=== PATIENT | male | born 2000 ===

== ENCOUNTER 2019-04-04 07:21 | Day surgery (SDC) | payer SELFPAY ==
[2019-04-04] MEDS ORDERED: Sodium Chloride 0.9% 1,000 ML IV ONE (07:28)
[2019-04-04] MEDS ORDERED: Ketorolac 30 MG/ML SDV IVPUSH ONE (07:31)
[2019-04-04] MEDS ORDERED: Ondansetron 4 MG/2 ML SDV IVPUSH ONE (07:31)
[2019-04-04 08:09] LABS: BLOOD UREA NITROGEN,BUN 10 mg/dL (7.0-18.0); CHLORIDE,CL 101 mmol/L (98-107); GLUCOSE RANDOM 122 mg/dL (74-106); POTASSIUM,K 3.6 mmol/L (3.5-5.1); SODIUM,NA 137 mmol/L (136-148)
--- NOTE | 2019-04-04 08:12 | EDM.PDOC ---
ED HPI GENERAL MEDICAL PROBLEM - General Chief Complaint: Abdominal Pain Stated Complaint: ABD PAIN Time Seen by Provider: 04/04/19 08:03 - History of Present Illness INITIAL COMMENTS - FREE TEXT/NARRATIVE: HISTORY AND PHYSICAL: History of present illness: Patient is a 18-year-old male with no significant past medical history who presents with history of right lower quadrant abdominal pain 3 he denies diarrhea denies vomiting although has had some mild nausea denies fever chills trauma urinary symptoms or other complaints. Review of systems: As per history of present illness and below otherwise all systems reviewed and negative. Past medical history: As per history of present illness and as reviewed below otherwise noncontributory. Surgical history: As per history of present illness and as reviewed below otherwise noncontributory. Social history: No reported history of drug or alcohol abuse. Family history: As per history of present illness and as reviewed below otherwise noncontributory. Physical exam: HEENT: Atraumatic, normocephalic, pupils reactive, negative for conjunctival pallor or scleral icterus, mucous membranes moist, throat clear, neck supple, nontender, trachea midline. Lungs: Clear to auscultation, breath sounds equal bilaterally, chest nontender. Heart: S1S2, regular, negative for clicks, rubs, or JVD. Abdomen: Soft, tenderness in the right lower quadrant with mild guarding. Negative for masses or hepatosplenomegaly. Negative for costovertebral tenderness. Pelvis: Stable nontender. Genitourinary: Deferred. Rectal: Deferred. Extremities: Atraumatic, negative for cords or calf pain. Neurovascular unremarkable. Neuro: Awake, alert, oriented. Cranial nerves II through XII unremarkable. Cerebellum unremarkable. Motor and sensory unremarkable throughout. Exam nonfocal. Diagnostics: CBC CMP UA CT abdomen and pelvis with IV contrast Therapeutics: Saline 1 L bolus Impression: #1 acute right lower quadrant abdominal pain Definitive disposition and diagnosis as appropriate pending reevaluation and review of above. Lower Abdominal Pain Score (Numeric/FACES): 9 - Related Data Allergies Allergy/AdvReac Type Severity Reaction Status Date / Time No Known Allergies Allergy Verified 04/04/19 07:26 Home Meds: Home Meds . [No Known Home Meds] 04/04/19 [History] Past Medical History - Past Surgical History HEENT Surgical History: Reports: Tonsillectomy GI Surgical History: Reports: Hernia, Inguinal Social & Family History - Family History Family Medical History: Noncontributory - Tobacco Use Smoking Status *Q: Light Tobacco Smoker Years of Tobacco use: 1 Packs/Tins Daily: 0.1 - Recreational Drug Use Recreational Drug Use: No ED ROS GENERAL - Review of Systems Review Of Systems: ROS reveals no pertinent complaints other than HPI. ED EXAM, GENERAL - Physical Exam Exam: See Below (See dictation) Course - Vital Signs Last Recorded V/S: Last Vital Signs Temp 36.6 C 04/04/19 09:22 Pulse 78 04/04/19 09:22 Resp 18 04/04/19 09:22 BP 120/65 04/04/19 09:22 Pulse Ox 98 04/04/19 09:22 - Orders/Labs/Meds Orders: Active Orders 24 hr Category Date Time Status UA RFX SERGIO AND CULT IF INDIC [URIN] Stat Lab 04/04/19 07:32 Ordered Labs: Laboratory Tests 04/04/19 04/04/19 Range/Units 07:33 07:33 WBC 14.38 H (4.0-11.0) K/uL RBC 4.89 (4.50-5.90) M/uL Hgb 15.5 (13.0-17.0) g/dL Hct 44.2 (38.0-50.0) % MCV 90.4 (80.0-98.0) fL MCH 31.7 (27.0-32.0) pg MCHC 35.1 (31.0-37.0) g/dL RDW Std Deviation 40.0 (28.0-62.0) fl RDW Coeff of David 12 (11.0-15.0) % Plt Count 266 (150-400) K/uL MPV 9.70 (7.40-12.00) fL Neut % (Auto) 89.4 H (48.0-80.0) % Lymph % (Auto) 4.0 L (16.0-40.0) % [place] % (Auto) 6.5 (0.0-15.0) % Eos % (Auto) 0.0 (0.0-7.0) % Baso % (Auto) 0.1 (0.0-1.5) % Neut # (Auto) 12.9 H (1.4-5.7) K/uL Lymph # (Auto) 0.6 (0.6-2.4) K/uL [place] # (Auto) 0.9 H (0.0-0.8) K/uL Eos # (Auto) 0.0 (0.0-0.7) K/uL Baso # (Auto) 0.0 (0.0-0.1) K/uL Nucleated RBC % 0.0 /100WBC Nucleated RBCs # 0 K/uL Sodium 137 (136-148) mmol/L Potassium 3.6 (3.5-5.1) mmol/L Chloride 101 (98-107) mmol/L Carbon Dioxide 25.0 (21.0-32.0) mmol/L BUN 10 (7.0-18.0) mg/dL Creatinine 1.2 (0.8-1.3) mg/dL Est Cr Clr Drug Dosing 91.35 mL/min Estimated GFR (MDRD) > 60.0 ml/min Glucose 122 H (74-106) mg/dL Calcium 8.9 (8.5-10.1) mg/dL Total Bilirubin 1.5 H (0.2-1.0) mg/dL AST 14 L (15-37) IU/L ALT 18 (14-63) IU/L Alkaline Phosphatase 75 (46-116) U/L Total Protein 7.7 (6.4-8.2) g/dL Albumin 4.2 (3.4-5.0) g/dL Globulin 3.5 (2.6-4.0) g/dL Albumin/Globulin Ratio 1.2 (0.9-1.6) Meds: Medications Discontinued Medications Generic Name Dose Route Start Last Admin Trade Name Freq PRN Reason Stop Dose Admin Sodium Chloride 1,000 mls @ 999 mls/hr 04/04/19 07:28 04/04/19 07:39 Normal Saline IV 04/04/19 08:28 999 mls/hr .Bolus ONE Administration Iopamidol 80 ml 04/04/19 08:54 04/04/19 08:54 Isovue Multipack-370 (76%) IVPUSH 04/04/19 08:55 80 ml ONETIME STA Administration Ketorolac Tromethamine 30 mg 04/04/19 07:31 04/04/19 07:38 Toradol IVPUSH 04/04/19 07:32 30 mg ONETIME ONE Administration Ondansetron HCl 4 mg 04/04/19 07:31 04/04/19 07:38 Zofran IVPUSH 04/04/19 07:32 4 mg ONETIME ONE Administration Departure - Departure Time of Disposition: 09:35 Disposition: Still A Patient 30 Condition: Good Clinical Impression: Abdominal pain, Appendicitis - Discharge Information Forms: ED Department Discharge - My Orders Last 24 Hours: My Active Orders 04/04/19 07:32 UA RFX SERGIO AND CULT IF INDIC [URIN] Stat - Assessment/Plan Last 24 Hours: My Active Orders 04/04/19 07:32 UA RFX SERGIO AND CULT IF INDIC [URIN] Stat
[2019-04-04] MEDS ORDERED: Iopamidol 755 MG/ML 500 ML Multipack Bottle IVPUSH STA (08:54)
--- NOTE | 2019-04-04 09:14 | CT ---
INDICATION: Lower abdominal pain with nausea TECHNIQUE: CT abdomen and pelvis acquired with 100 cc Omnipaque IV contrast. COMPARISON: None. FINDINGS: Lower chest: Unremarkable. Liver: Unremarkable. Normal in size and attenuation. No masses. Gallbladder and bile ducts: Unremarkable. No stones or inflammation. No biliary dilatation. Pancreas: Unremarkable. No mass or inflammation. Spleen: Unremarkable. Normal in size. No masses. Adrenal glands: Unremarkable. No nodules. Kidneys: Unremarkable. No masses, stones, or hydronephrosis. GI tract: Unremarkable. Normal in caliber. No sign of mass or inflammation. Appendix is inflamed and dilated measuring up to 9 mm. No sign of angelia perforation or abscess. Vasculature: Unremarkable. Mesenteric arteries are patent. Lymph nodes: No lymphadenopathy. Omentum/Peritoneum/Abdominal Wall: Unremarkable. No sign of mass or infiltration. No free air or significant free fluid. Pelvis: Unremarkable. Bones: Unremarkable for age. IMPRESSION: Acute appendicitis without complication. Please note that all CT scans at this facility use dose modulation, iterative reconstruction, and/or weight-based dosing when appropriate to reduce radiation dose to as low as reasonably achievable. Dictated by Willian Cavanaugh MD @ Apr 04 2019 9:09AM Signed by Dr. Willian Cavanaugh @ Apr 04 2019 9:12AM
[2019-04-04] MEDS ORDERED: cefOXitin 2 GM in Premix Bag 1 BAG IV ONE (10:03)
--- NOTE | 2019-04-04 10:39 | PCM.PREANE ---
Preanesthetic Assessment - Anesthesia/Transfusion/Family Hx Anesthesia History: Prior Anesthesia Without Reaction Family History of Anesthesia Reaction: No Transfusion History: Unknown Intubation History: Unknown - Review of Systems General: No Symptoms Pulmonary: No Symptoms Cardiovascular: No Symptoms Gastrointestinal: Abdominal Pain Neurological: No Symptoms Other: Reports: None - Physical Assessment Vital Signs: Last Vital Signs Temp 36.6 C 04/04/19 10:22 Pulse 72 04/04/19 10:22 Resp 18 04/04/19 10:22 BP 121/52 L 04/04/19 10:22 Pulse Ox 99 04/04/19 10:22 Height: 5 ft 9 in Weight: 65.771 kg ASA Class: 2E Mental Status: Alert & Oriented x3 Airway Class: Mallampati = 1 Dentition: Reports: Normal Dentition Thyro-Mental Finger Breadths: 3 Mouth Opening Finger Breadths: 3 ROM/Head Extension: Full Lungs: Clear to Auscultation, Normal Respiratory Effort Cardiovascular: Regular Rate, Regular Rhythm - Lab Values: Laboratory Last Values WBC 14.38 K/uL (4.0-11.0) H 04/04/19 07:33 RBC 4.89 M/uL (4.50-5.90) 04/04/19 07:33 Hgb 15.5 g/dL (13.0-17.0) 04/04/19 07:33 Hct 44.2 % (38.0-50.0) 04/04/19 07:33 MCV 90.4 fL (80.0-98.0) 04/04/19 07:33 MCH 31.7 pg (27.0-32.0) 04/04/19 07:33 MCHC 35.1 g/dL (31.0-37.0) 04/04/19 07:33 RDW Std Deviation 40.0 fl (28.0-62.0) 04/04/19 07:33 RDW Coeff of David 12 % (11.0-15.0) 04/04/19 07:33 Plt Count 266 K/uL (150-400) 04/04/19 07:33 MPV 9.70 fL (7.40-12.00) 04/04/19 07:33 Neut % (Auto) 89.4 % (48.0-80.0) H 04/04/19 07:33 Lymph % (Auto) 4.0 % (16.0-40.0) L 04/04/19 07:33 [place] % (Auto) 6.5 % (0.0-15.0) 04/04/19 07:33 Eos % (Auto) 0.0 % (0.0-7.0) 04/04/19 07:33 Baso % (Auto) 0.1 % (0.0-1.5) 04/04/19 07:33 Neut # (Auto) 12.9 K/uL (1.4-5.7) H 04/04/19 07:33 Lymph # (Auto) 0.6 K/uL (0.6-2.4) 04/04/19 07:33 [place] # (Auto) 0.9 K/uL (0.0-0.8) H 04/04/19 07:33 Eos # (Auto) 0.0 K/uL (0.0-0.7) 04/04/19 07:33 Baso # (Auto) 0.0 K/uL (0.0-0.1) 04/04/19 07:33 Nucleated RBC % 0.0 /100WBC 04/04/19 07:33 Nucleated RBCs # 0 K/uL 04/04/19 07:33 Sodium 137 mmol/L (136-148) 04/04/19 07:33 Potassium 3.6 mmol/L (3.5-5.1) 04/04/19 07:33 Chloride 101 mmol/L (98-107) 04/04/19 07:33 Carbon Dioxide 25.0 mmol/L (21.0-32.0) 04/04/19 07:33 BUN 10 mg/dL (7.0-18.0) 04/04/19 07:33 Creatinine 1.2 mg/dL (0.8-1.3) 04/04/19 07:33 Est Cr Clr Drug Dosing 91.35 mL/min 04/04/19 07:33 Estimated GFR (MDRD) > 60.0 ml/min 04/04/19 07:33 Glucose 122 mg/dL (74-106) H 04/04/19 07:33 Calcium 8.9 mg/dL (8.5-10.1) 04/04/19 07:33 Total Bilirubin 1.5 mg/dL (0.2-1.0) H 04/04/19 07:33 AST 14 IU/L (15-37) L 04/04/19 07:33 ALT 18 IU/L (14-63) 04/04/19 07:33 Alkaline Phosphatase 75 U/L (46-116) 04/04/19 07:33 Total Protein 7.7 g/dL (6.4-8.2) 04/04/19 07:33 Albumin 4.2 g/dL (3.4-5.0) 04/04/19 07:33 Globulin 3.5 g/dL (2.6-4.0) 04/04/19 07:33 Albumin/Globulin Ratio 1.2 (0.9-1.6) 04/04/19 07:33 - Allergies Allergies/Adverse Reactions: Allergies Allergy/AdvReac Type Severity Reaction Status Date / Time No Known Allergies Allergy Verified 04/04/19 07:26 - Blood Blood Available: No - Anesthesia Plan Pre-Op Medication Ordered: None - Acknowledgements Anesthesia Type Planned: General Anesthesia Pt an Appropriate Candidate for the Planned Anesthesia: Yes Alternatives and Risks of Anesthesia Discussed w Pt/Guardian: Yes Pt/Guardian Understands and Agrees with Anesthesia Plan: Yes PreAnesthesia Questionnaire Gastrointestinal History: Reports: Other (See Below) (acute appendicitis) - Past Surgical History HEENT Surgical History: Reports: Tonsillectomy GI Surgical History: Reports: Hernia, Inguinal (left) Male Surgical History: Reports: Circumcision Dermatological Surgical History: Reports: Other (See Below) (exc. of left face lesion) - SUBSTANCE USE Smoking Status *Q: Light Tobacco Smoker Recreational Drug Use History: No - HOME MEDS Home Medications: Home Meds . [No Known Home Meds] 04/04/19 [History] - CURRENT (IN HOUSE) MEDS Current Meds: Current Medications Discontinued Medications Sodium Chloride (Normal Saline) 1,000 mls @ 999 mls/hr IV .Bolus ONE Stop: 04/04/19 08:28 Last Admin: 04/04/19 07:39 Dose: 999 mls/hr Cefoxitin Sodium 2 gm/ Premix 50 mls @ 100 mls/hr IV ONETIME ONE Stop: 04/04/19 10:32 Last Admin: 04/04/19 10:19 Dose: 100 mls/hr Iopamidol (Isovue Multipack-370 (76%)) 80 ml IVPUSH ONETIME STA Stop: 04/04/19 08:55 Last Admin: 04/04/19 08:54 Dose: 80 ml Ketorolac Tromethamine (Toradol) 30 mg IVPUSH ONETIME ONE Stop: 04/04/19 07:32 Last Admin: 04/04/19 07:38 Dose: 30 mg Ondansetron HCl (Zofran) 4 mg IVPUSH ONETIME ONE Stop: 04/04/19 07:32 Last Admin: 04/04/19 07:38 Dose: 4 mg
[2019-04-04] MEDS ORDERED: Bupivacaine 0.5% 10 ML SDV ONE (10:52)
[2019-04-04] MEDS ORDERED: ceFAZolin 1 GM Vial ONE (10:53)
[2019-04-04] MEDS ORDERED: Lactated Ringers 1,000 ML IV SCH (11:00)
--- NOTE | 2019-04-04 12:05 | PCM.CONS ---
H&P History of Present Illness - General Date of Service: 04/04/19 Admit Problem/Dx: Acute abdomen Source of Information: Patient History Limitations: Reports: No Limitations - History of Present Illness Initial Comments - Free Text/Narative: Patient is a 18-year-old gentleman who presented the emergency room with a three -day history of abdominal pain. He did have some fever and chills last night. He said he has had some nausea but no vomiting. He has also lost his appetite. He notes pain on ambulation and states he can't stand up straight when he walks. Symptom Onset Date: 04/01/19 Duration of Symptoms: Reports: Getting Worse Location: Reports: Abdomen Quality: Reports: Ache, Pressure, Throbbing Severity: Moderate Improves with: Reports: Rest Worsens with: Reports: Movement Context: Reports: Sick Contact Associated Symptoms: Reports: Loss of Appetite Lower Abdominal Pain Score (Numeric/FACES): 9 - Related Data Allergies/Adverse Reactions: Allergies Allergy/AdvReac Type Severity Reaction Status Date / Time No Known Allergies Allergy Verified 04/04/19 07:26 Home Medications: Home Meds . [No Known Home Meds] 04/04/19 [History] Past Medical History Gastrointestinal History: Reports: Other (See Below) (acute appendicitis) - Past Surgical History HEENT Surgical History: Reports: Tonsillectomy GI Surgical History: Reports: Hernia, Inguinal (left) Male Surgical History: Reports: Circumcision Dermatological Surgical History: Reports: Other (See Below) (exc. of left face lesion) Social & Family History - Family History Family Medical History: Noncontributory - Tobacco Use Smoking Status *Q: Never Smoker Years of Tobacco use: 1 Packs/Tins Daily: 0.1 - Recreational Drug Use Recreational Drug Use: No Drug Use in Last 12 Months: No H&P Review of Systems - Review of Systems: Review Of Systems: See Below General: Reports: Fever, Chills, Decreased Appetite HEENT: Reports: No Symptoms Pulmonary: Denies: Wheezing, Pleuritic Chest Pain Cardiovascular: Denies: Chest Pain Gastrointestinal: Reports: Abdominal Pain, Anorexia, Decreased Appetite, Nausea. Denies: Vomiting Genitourinary: Denies: Dysuria, Frequency, Burning, Pain, Urgency Musculoskeletal: Reports: No Symptoms Skin: Reports: No Symptoms Psychiatric: Reports: No Symptoms Neurological: Reports: No Symptoms Hematologic/Lymphatic: Reports: No Symptoms Immunologic: Reports: No Symptoms Exam - Exam Exam: See Below - Vital Signs Vital Signs: Last Vital Signs Temp 97.5 F 04/04/19 10:45 Pulse 71 04/04/19 10:45 Resp 16 04/04/19 10:45 BP 127/70 04/04/19 10:45 Pulse Ox 98 04/04/19 10:45 Weight: 145 lb - Exam Quality Assessment: No: Supplemental Oxygen General: Alert, Oriented, Cooperative, Mild Distress HEENT: Conjunctiva Clear, EACs Clear, Pupils Equal, Pupils Reactive. No: Scleral Icterus Neck: Supple, Trachea Midline Lungs: Clear to Auscultation, Normal Respiratory Effort Cardiovascular: Regular Rate, Regular Rhythm, Normal S1, Normal S2. No: Tachycardia GI/Abdominal Exam: Normal Bowel Sounds, Soft, No Distention, Rebound, Tender. No: Guarding, Rigid (Male) Exam: No Hernia Rectal (Males) Exam: Deferred Back Exam: Normal Inspection Extremities: Normal Inspection, Normal Range of Motion Peripheral Pulses: 4+: Posterior Tibial (L), Posterior Tibial (R), Dorsalis Pedis (L), Dorsalis Pedis (R) Skin: Warm, Dry, Intact Neurological: Cranial Nerves Intact Neuro Extensive - Mental Status: Alert, Oriented x3, Normal Mood/Affect Psychiatric: Alert, Normal Affect, Normal Mood - Patient Data Lab Results Last 24 hrs: Laboratory Results - last 24 hr 04/04/19 04/04/19 Range/Units 07:33 07:33 WBC 14.38 H (4.0-11.0) K/uL RBC 4.89 (4.50-5.90) M/uL Hgb 15.5 (13.0-17.0) g/dL Hct 44.2 (38.0-50.0) % MCV 90.4 (80.0-98.0) fL MCH 31.7 (27.0-32.0) pg MCHC 35.1 (31.0-37.0) g/dL RDW Std Deviation 40.0 (28.0-62.0) fl RDW Coeff of David 12 (11.0-15.0) % Plt Count 266 (150-400) K/uL MPV 9.70 (7.40-12.00) fL Neut % (Auto) 89.4 H (48.0-80.0) % Lymph % (Auto) 4.0 L (16.0-40.0) % [place] % (Auto) 6.5 (0.0-15.0) % Eos % (Auto) 0.0 (0.0-7.0) % Baso % (Auto) 0.1 (0.0-1.5) % Neut # (Auto) 12.9 H (1.4-5.7) K/uL Lymph # (Auto) 0.6 (0.6-2.4) K/uL [place] # (Auto) 0.9 H (0.0-0.8) K/uL Eos # (Auto) 0.0 (0.0-0.7) K/uL Baso # (Auto) 0.0 (0.0-0.1) K/uL Nucleated RBC % 0.0 /100WBC Nucleated RBCs # 0 K/uL Sodium 137 (136-148) mmol/L Potassium 3.6 (3.5-5.1) mmol/L Chloride 101 (98-107) mmol/L Carbon Dioxide 25.0 (21.0-32.0) mmol/L BUN 10 (7.0-18.0) mg/dL Creatinine 1.2 (0.8-1.3) mg/dL Est Cr Clr Drug Dosing 91.35 mL/min Estimated GFR (MDRD) > 60.0 ml/min Glucose 122 H (74-106) mg/dL Calcium 8.9 (8.5-10.1) mg/dL Total Bilirubin 1.5 H (0.2-1.0) mg/dL AST 14 L (15-37) IU/L ALT 18 (14-63) IU/L Alkaline Phosphatase 75 (46-116) U/L Total Protein 7.7 (6.4-8.2) g/dL Albumin 4.2 (3.4-5.0) g/dL Globulin 3.5 (2.6-4.0) g/dL Albumin/Globulin Ratio 1.2 (0.9-1.6) Result Diagrams: 04/04/19 07:33 04/04/19 07:33 Consult PN Assessment/Plan (1) Abdominal pain SNOMED Code(s): 59966106 Code(s): R10.9 - UNSPECIFIED ABDOMINAL PAIN Current Visit: Yes Qualifiers: Abdominal location: right lower quadrant Qualified Code(s): R10.31 - Right lower quadrant pain (2) Appendicitis SNOMED Code(s): 15237606 Code(s): K37 - UNSPECIFIED APPENDICITIS Current Visit: Yes Qualifiers: Appendicitis type: acute appendicitis Problem List Initiated/Reviewed/Updated: Yes My Orders Last 24 Hours: My Active Orders 04/04/19 10:53 Antiembolic Devices [RC] PER UNIT ROUTINE Insert Urinary Catheter [OM.PC] Timed Oxygen Therapy [RC] ASDIRECTED RT Incentive Spirometry [RC] Q1HWA Skin Preparation [RC] .PREOP Urinary Catheter Assessment [RC] ASDIRECTED Urinary Catheter Assessment [RC] ASDIRECTED Urinary Catheter Assessment [RC] ASDIRECTED Vital Signs [RC] PER UNIT ROUTINE Antiembolic Hose [OM.PC] Routine Resuscitation Status Routine 04/04/19 11:00 Lactated Ringers [Ringers, Lactated] 1,000 ml IV ASDIRECTED 04/04/19 Dinner Nothing Per Oral Diet [DIET] Plan: Laparoscopic appendectomy, possible open appendectomy. Both operative procedures, along with the risks, including, but not limited to, bleeding, infection, pneumonia, deep venous thrombosis, pulmonary emboli, myocardial infarction, and adjacent organ injury have been reviewed with the patient who voices understanding, offers no questions and agrees to proceed.
[2019-04-04] MEDS ORDERED: Propofol 200 MG/20 ML SDV ONE (12:14)
[2019-04-04] MEDS ORDERED: Midazolam 1 MG/ML 2 ML SDV ONE (12:14)
[2019-04-04] MEDS ORDERED: Dexamethasone 4 MG/ML 5 ML MDV ONE (12:15)
[2019-04-04] MEDS ORDERED: Rocuronium 100 MG/10 ML Syringe ONE (12:15)
[2019-04-04] MEDS ORDERED: fentaNYL 250 MCG/5 ML SDV ONE ×2 (12:15→13:27)
[2019-04-04] MEDS ORDERED: Lidocaine 2% 5 ML SDV ONE (12:15)
[2019-04-04] MEDS ORDERED: Ondansetron 4 MG/2 ML SDV ONE ×2 (12:19→13:51)
[2019-04-04] MEDS ORDERED: Glycopyrrolate 0.2 MG/ML SDV ONE (13:47)
[2019-04-04] MEDS ORDERED: Neostigmine Methylsulfate 1 MG/ML 5 ML Syringe ONE (13:47)
[2019-04-04] MEDS ORDERED: Ketorolac 30 MG/ML SDV ONE (14:02)
[2019-04-04] MEDS ORDERED: fentaNYL 100 MCG/2 ML SDV IVPUSH PRN (14:36)
--- NOTE | 2019-04-04 14:36 | PCM.OPNOTE ---
- General Post-Op/Procedure Note Date of Surgery/Procedure: 04/04/19 Operative Procedure(s): Laparoscopic appendectomy Pre Op Diagnosis: Acute abdomen Post-Op Diagnosis: Acute appendicitis with localized peritonitis Anesthesia Technique: General ET Tube (ASA IIE) Primary Surgeon: Trino Garcia Fluid Replacement, Intraop: 850 Output, Urine Amount: 350 EBL in mLs: 10 Condition: Stable Free Text/Narrative:: DICTATION [id number] CPT CODE 29626
[2019-04-04] MEDS ORDERED: HYDROmorphone 2 MG/ML Syringe IVPUSH ONE (14:37)
[2019-04-04] MEDS ORDERED: cefOXitin 1 GM in Premix Bag 1 BAG IV SCH (14:45)
[2019-04-04] MEDS ORDERED: Morphine 10 MG/ML Syringe IVPUSH PRN (15:03)
--- NOTE | 2019-04-04 15:17 | OR ---
SURGEON: Trino Garcia M.D. DATE OF PROCEDURE: 04/04/2019 OPERATION PERFORMED: Laparoscopic appendectomy. PRIMARY SURGEON: Trino Garcia MD. ANESTHESIA: General endotracheal. ASA CLASSIFICATION: IIE. PREOPERATIVE DIAGNOSIS: Acute abdomen. POSTOPERATIVE DIAGNOSIS: Acute appendicitis with localized peritonitis. ESTIMATED BLOOD LOSS: 10 mL. INTRAOPERATIVE FLUID REPLACEMENT: 850 mL of crystalloid. INTRAOPERATIVE URINE OUTPUT: 350 mL. DESCRIPTION OF PROCEDURE: The patient was taken to the operating room, placed on the operating table in the supine position. Time-out was called for appropriate identification of the patient and procedure. Thigh-high TEDs and sequential compression boots were placed. Following satisfactory attainment of general endotracheal anesthesia, a Shi catheter was placed in the patient's urinary bladder. Time-out had been called to verify the patient and procedure. The abdomen was prepped with DuraPrep solution. Sterile drapes were applied. The skin just above the umbilicus was infiltrated with 0.5% Marcaine solution. The skin incision was made and deepened through the subcutaneous tissue obtaining hemostasis with the use of electrocautery. The Veress needle was introduced into the peritoneal cavity. Saline drop test was positive. Carbon dioxide pneumoperitoneum was established with the release set at 13 cm of water. Once a satisfactory pneumoperitoneum was established, 5 mm camera and port were placed through the supraumbilical incision. The patient was now positioned with his feet down and rolled to the left. Under camera vision, 12 mm suprapubic and 5 mm left lower quadrant ports were placed. Each incision had preemptively been infiltrated with 0.5% Marcaine solution. The appendix was stuck to the surrounding tissues and with gentle dissection, I was able to mobilize the appendix. The mesoappendix was then taken down with a Harmonic scalpel. Once the mesoappendix had been completely mobilized, the appendix was ligated and transected using the Endo-CECE with a blue load. The staple line was examined and appeared intact. The appendix had properly been placed in an Endo Catch bag and maintained in situ. The right lower quadrant was then inspected and there was no significant bleeding. The right side of the abdomen was irrigated with 1 L of saline containing 1 g of Ancef. All fluid was aspirated. With that accomplished, the 12 mm suprapubic port and Endo Catch containing appendix were removed. Under camera vision, the 5 mm left lower quadrant port was removed and finally the supraumbilical camera and port were removed. Wounds were inspected for hemostasis and small bleeding sites were electrocoagulated. The midline fascia in both the supraumbilical and suprapubic incisions was closed with a single interrupted 0 Vicryl suture. The supraumbilical and suprapubic incisions were closed in 2 layers approximating the subcutaneous tissue with 3-0 Vicryl and the skin with subcuticular 4-0 Monocryl. The left lower quadrant incision was closed with subcuticular 4-0 Monocryl. All incisions were Steri-Stripped and dressed with sterile Tegaderm pads. Sponge, needle, and instrument counts were all correct. Shi catheter was removed prior to emergence from anesthesia. Following emergence from anesthesia and extubation, the patient was taken to recovery room in stable condition. GUERRERO KEANE /[id number]
--- NOTE | 2019-04-04 15:24 | PCM.POSTAN ---
POST ANESTHESIA ASSESSMENT - MENTAL STATUS Mental Status: Alert, Oriented - VITAL SIGNS Vital Signs: Last Vital Signs Temp 36.4 C 04/04/19 14:28 Pulse 55 L 04/04/19 15:18 Resp 11 L 04/04/19 15:18 BP 102/49 L 04/04/19 15:18 Pulse Ox 97 04/04/19 15:18 - RESPIRATORY Respiratory Status: Respiratory Rate WNL, Airway Patent, O2 Saturation Stable - CARDIOVASCULAR CV Status: Pulse Rate WNL, Blood Pressure Stable - GASTROINTESTINAL GI Status: No Symptoms - PAIN Pain Score: 0 - POST OP HYDRATION Hydration Status: Adequate & Stable - OBSERVATIONS Free Text/Narrative:: no anesthesia problems
[2019-04-04] MEDS: Acetaminophen/HYDROcodone 325-5 MG Tab PO PRN (19:27)
[2019-04-04] MEDS: cefOXitin 1 GM in Premix Bag 1 BAG IV SCH (20:05)
[2019-04-04] MEDS: Lactated Ringers 1,000 ML IV SCH (21:30)
[2019-04-05] MEDS: cefOXitin 1 GM in Premix Bag 1 BAG IV SCH ×2 (02:51→10:36)
[2019-04-05] MEDS: Lactated Ringers 1,000 ML IV SCH (06:00)
[2019-04-05] MEDS: Acetaminophen/HYDROcodone 325-5 MG Tab PO PRN (06:40)
--- NOTE | 2019-04-05 07:53 | PCM48HPAN ---
Post Anesthesia Note - EVALUATION WITHIN 48HRS OF ANESTHETIC Vital Signs in Normal Range: Yes Patient Participated in Evaluation: Yes Respiratory Function Stable: Yes Airway Patent: Yes Cardiovascular Function Stable: Yes Hydration Status Stable: Yes Pain Control Satisfactory: Yes Nausea and Vomiting Control Satisfactory: Yes Mental Status Recovered: Yes Vital Signs: Last Vital Signs Temp 36.2 C 04/05/19 07:11 Pulse 63 04/05/19 07:11 Resp 18 04/05/19 07:11 BP 123/66 04/05/19 07:11 Pulse Ox 99 04/05/19 07:11 - COMMENTS/OBSERVATIONS Free Text/Narrative:: no anesthesia problems
--- NOTE | 2019-04-05 09:03 | PCM.DCSUM1 ---
Discharge Summary - Hospital Course Free Text/Narrative:: 18 y/o male who presented yesterday with a 3 day history of abdominal pain. Found to have acute appendicitis. Taken to OR for laparoscopic appendectomy. Appendix was very inflamed but not ruptured. Elected to keep him overnight for 24 hours of antibiotics. Has done very well. Afebrile. VSS. Dressings dry and intact. Feels ready to go home. - Discharge Data Discharge Date: 04/05/19 Discharge Disposition: Home, Self-Care 01 Condition: Stable - Referral to Home Health Primary Care Physician: PCP None - Discharge Diagnosis/Problem(s) (1) Abdominal pain SNOMED Code(s): 51928401 ICD Code: R10.9 - UNSPECIFIED ABDOMINAL PAIN Status: Acute Current Visit : Yes Qualifiers: Abdominal location: right lower quadrant Qualified Code(s): R10.31 - Right lower quadrant pain (2) Appendicitis SNOMED Code(s): 37171744 ICD Code: K37 - UNSPECIFIED APPENDICITIS Status: Acute Current Visit: Yes Qualifiers: Appendicitis type: acute appendicitis Acute appendicitis type: with localized peritonitis Appendicitis perforation presence: without perforation Appendicitis abscess presence: without abscess - Patient Summary/Data Operative Procedure(s) Performed: Laparoscopic appendectomy - Patient Instructions Diet: Usual Diet as Tolerated Activity: No Lifting Over 25 Pounds (for 6 weeks) Driving: May Drive Today Showering/Bathing: May Shower Wound/Incision Care: Keep Operative Site/Wound Site Clean and Dry Wound/Incision, Other: May shower over dressings and remove on post-operative day 2. Notify Provider of: Fever, Increased Pain Other/Special Instructions: See Dr. Garcia in 7-10 days as scheduled. - Discharge Plan Home Medications: Home Meds . [No Known Home Meds] 04/04/19 [History] Referrals: Trino Garcia MD [Physician] - 04/14/19 9:00 am - Discharge Summary/Plan Comment DC Time >30 min.: No - General Info Date of Service: 04/05/19 Admission Dx/Problem (Free Text: Acute appendicitis Subjective Update: Patient has had a good night. He denies any abdominal pain and states he is feeling much better after surgery. He has been up ambulating. He is tolerating an oral diet without difficulty. Functional Status: Reports: Pain Controlled, Tolerating Diet, Ambulating, Urinating, Incentive Spirometry - Review of Systems General: Reports: Appetite. Denies: Fever, Weakness, Fatigue, Malaise, Chills HEENT: Reports: No Symptoms Pulmonary: Denies: Shortness of Breath Cardiovascular: Denies: Chest Pain Gastrointestinal: Denies: Abdominal Pain, Decreased Appetite, Diarrhea, Nausea, Vomiting Genitourinary: Denies: Dysuria, Frequency, Burning, Pain, Urgency Musculoskeletal: Reports: No Symptoms Skin: Denies: Cyanosis, Jaundice Neurological: Denies: Confusion, Dizziness Psychiatric: Reports: No Symptoms - Patient Data Vitals - Most Recent: Last Vital Signs Temp 97.2 F 04/05/19 07:11 Pulse 63 04/05/19 07:11 Resp 18 04/05/19 07:11 BP 123/66 04/05/19 07:11 Pulse Ox 99 04/05/19 07:11 Weight - Most Recent: 145 lb 0.004 oz I&O - Last 24 hours: Intake & Output 04/04/19 04/05/19 04/05/19 19:59 03:59 11:59 Intake Total 2020 50 1478 Output Total 700 525 Balance 1320 50 953 Lab Results - Last 24 hrs: Laboratory Results - last 24 hr 04/05/19 Range/Units 06:40 Urine Color YELLOW Urine Appearance CLEAR Urine pH 6.0 (5.0-8.0) Ur Specific Story 1.015 (1.001-1.035) Urine Protein NEGATIVE (NEGATIVE) mg/dL Urine Glucose (UA) NEGATIVE (NEGATIVE) mg/dL Urine Ketones TRACE H (NEGATIVE) mg/dL Urine Occult Blood NEGATIVE (NEGATIVE) Urine Nitrite NEGATIVE (NEGATIVE) Urine Bilirubin NEGATIVE (NEGATIVE) Urine Urobilinogen 0.2 (<2.0) EU/dL Ur Leukocyte Esterase NEGATIVE (NEGATIVE) Med Orders - Current: Current Medications Hydrocodone Bitart/Acetaminophen ([place] 325-5 Mg) 1 tab PO Q6H PRN PRN Reason: Pain (moderate 4-6) Last Admin: 04/05/19 06:40 Dose: 1 tab Fentanyl (Sublimaze) 50 - 100 mcg IVPUSH Q5M PRN PRN Reason: Pain (severe 7-10) Lactated Ringer's (Ringers, Lactated) 1,000 mls @ 125 mls/hr IV ASDIRECTED [facility] Last Admin: 04/05/19 06:00 Dose: 125 mls/hr Cefoxitin Sodium 1 gm/ Premix 50 mls @ 100 mls/hr IV Q8H [facility] Stop: 04/05/19 11:29 Last Admin: 04/05/19 02:51 Dose: 100 mls/hr Morphine Sulfate (Morphine) 0 mg IVPUSH Q1H PRN PRN Reason: Pain (severe 7-10) Discontinued Medications Bupivacaine HCl (Sensorcaine-Mpf 0.5%) Confirm Administered Dose 20 ml .ROUTE .STK-MED ONE Stop: 04/04/19 10:53 Cefazolin Sodium (Ancef) Confirm Administered Dose 1 gm .ROUTE .STK-MED ONE Stop: 04/04/19 10:54 Dexamethasone (Dexamethasone) Confirm Administered Dose 20 mg .ROUTE .STK-MED ONE Stop: 04/04/19 12:16 Fentanyl (Sublimaze) Confirm Administered Dose 250 mcg .ROUTE .STK-MED ONE Stop: 04/04/19 12:16 Fentanyl (Sublimaze) Confirm Administered Dose 250 mcg .ROUTE .STK-MED ONE Stop: 04/04/19 13:28 Glycopyrrolate (Robinul) Confirm Administered Dose 0.4 mg .ROUTE .STK-MED ONE Stop: 04/04/19 13:48 Hydromorphone HCl (Dilaudid) 2 mg IVPUSH ONETIME ONE Stop: 04/04/19 14:38 Last Admin: 04/04/19 17:13 Dose: Not Given Sodium Chloride (Normal Saline) 1,000 mls @ 999 mls/hr IV .Bolus ONE Stop: 04/04/19 08:28 Last Admin: 04/04/19 07:39 Dose: 999 mls/hr Cefoxitin Sodium 2 gm/ Premix 50 mls @ 100 mls/hr IV ONETIME ONE Stop: 04/04/19 10:32 Last Admin: 04/04/19 10:19 Dose: 100 mls/hr Lactated Ringer's (Ringers, Lactated) 1,000 mls @ 125 mls/hr IV ASDIRECTED [facility] Last Admin: 04/04/19 11:09 Dose: 125 mls/hr Cefoxitin Sodium 1 gm/ Premix 50 mls @ 100 mls/hr IV Q8H [facility] Stop: 04/05/19 07:14 Last Admin: 04/04/19 17:12 Dose: Not Given Iopamidol (Isovue Multipack-370 (76%)) 80 ml IVPUSH ONETIME STA Stop: 04/04/19 08:55 Last Admin: 04/04/19 08:54 Dose: 80 ml Ketorolac Tromethamine (Toradol) 30 mg IVPUSH ONETIME ONE Stop: 04/04/19 07:32 Last Admin: 04/04/19 07:38 Dose: 30 mg Ketorolac Tromethamine (Toradol) Confirm Administered Dose 30 mg .ROUTE .STK- MED ONE Stop: 04/04/19 14:03 Lidocaine (Xylocaine-Mpf 2%) Confirm Administered Dose 5 ml .ROUTE .STK-MED ONE Stop: 04/04/19 12:16 Midazolam HCl (Versed 1 Mg/Ml) Confirm Administered Dose 2 mg .ROUTE .STK-MED ONE Stop: 04/04/19 12:15 Neostigmine Methylsulfate (Neostigmine) Confirm Administered Dose 5 mg .ROUTE .STK-MED ONE Stop: 04/04/19 13:48 Ondansetron HCl (Zofran) 4 mg IVPUSH ONETIME ONE Stop: 04/04/19 07:32 Last Admin: 04/04/19 07:38 Dose: 4 mg Ondansetron HCl (Zofran) Confirm Administered Dose 4 mg .ROUTE .STK-MED ONE Stop: 04/04/19 12:20 Ondansetron HCl (Zofran) Confirm Administered Dose 4 mg .ROUTE .STK-MED ONE Stop: 04/04/19 13:52 Propofol (Diprivan 20 Ml) Confirm Administered Dose 200 mg .ROUTE .STK-MED ONE Stop: 04/04/19 12:15 Rocuronium [place] (Zemuron) Confirm Administered Dose 100 mg .ROUTE .STK-MED ONE Stop: 04/04/19 12:16 - Exam Quality Assessment: Reports: DVT Prophylaxis. Denies: Supplemental Oxygen, Skin Breakdown General: Reports: Alert, Oriented, Cooperative, No Acute Distress HEENT: Reports: Pupils Equal, Pupils Reactive. Denies: Scleral Icterus Neck: Reports: Supple Lungs: Reports: Clear to Auscultation, Normal Respiratory Effort Cardiovascular: Reports: Regular Rate, Regular Rhythm GI/Abdominal Exam: Normal Bowel Sounds, Soft, Non-Tender, No Distention, No Mass. No: Guarding, Rigid, Rebound (Male) Exam: Deferred Rectal (Males) Exam: Deferred Back Exam: Reports: Normal Inspection Extremities: Normal Inspection Skin: Reports: Warm, Dry, Intact Wound/Incisions: Reports: Dressing Dry and Intact, No Drainage Neurological: Reports: No New Focal Deficit Psy/Mental Status: Reports: Alert, Normal Affect, Normal Mood
== END 2019-04-05 13:15 | disposition home or self-care (01) ==
LOC: MW.ED 07:21 → MW.SDS 10:07 → MW.MS 14:33 → MW.SDS 04-05 13:15
PROVIDERS: ATTEND Surgery
DX: K35.30 Acute appendicitis with localized peritonitis, without perforation or gangrene (principal); F17.210 Nicotine dependence, cigarettes, uncomplicated
CPT/HCPCS: 36415; 44970; 74177; 80053; 81003; 85025; 96361; 96374; 96375; 99285; A9270; J0690; J0694; J1100; J1885; J2001; J2250; J2405; J2704; J3010; J3490; J7040; J7120; Q9967; 99284